=== PATIENT | male | born 1985 | race African-American/Black ===

== ENCOUNTER 2017-01-05 21:38 | Emergency (ER) | payer SELFPAY ==
[~2017-01-05] VITALS: Ht 182.9 cm; Wt 77.3 kg
[2017-01-05 21:44] VITALS: BP 140/90
== END 2017-01-05 23:50 | disposition left against medical advice (07) ==
LOC: EMS 21:40
DX: T78.40XA Allergy, unspecified, initial encounter (principal); Z53.21 Procedure and treatment not carried out due to patient leaving prior to being seen by health care provider